=== PATIENT | male | born 1945 ===

== ENCOUNTER → 2018-01-07 | Outpatient (CLI) | payer OTHER | LOC: LAB SHORT 16:30 → LAB EV 16:30 | DX: E11.9 Type 2 diabetes mellitus without complications (principal) | CPT/HCPCS: 82043 ==

== ENCOUNTER → 2020-05-02 | Outpatient (CLI) | payer OTHER ==
[2020-05-02 17:14] LABS: Anion Gap 11 mmol/L (6-16); Blood Urea Nitrogen 20 mg/dL (8-24); Bun/Creatinine Ratio 13.8 (12.0-20.0); CHOL/HDL RATIO 3.5; CO2, Blood 22 mmol/L (21-32); Calcium, Blood 8.9 mg/dL (8.5-10.1); Chloride, Blood 103 mmol/L (98-108); Cholesterol 145 mg/dL (50-200); Creatinine, Blood 1.45 mg/dL (0.60-1.20); Glomerular Filtration Rate 47 (60-); Glucose, Blood 147 mg/dL (70-99); HDL Cholesterol 42 mg/dL (>39); LDL/HDL RATIO 1.4; Low Density Lipoprotein Chol 57 mg/dL (<110); Potassium, Blood 4.5 mmol/L (3.5-5.5); Sodium, Blood 136 mmol/L (136-145); Thyroid Stimulating Hormone 1.478 uIU/mL (0.360-4.800); Triglycerides 231 mg/dL (30-160); Very Low Density Lipoprot Chol 46 mg/dL (6-32)
== END | disposition home or self-care (01) ==
LOC: LAB EV 15:41 → LAB SHORT 15:41
PROVIDERS: Family Medicine
DX: E11.21 Type 2 diabetes mellitus with diabetic nephropathy (principal); E78.2 Mixed hyperlipidemia; E03.4 Atrophy of thyroid (acquired)
CPT/HCPCS: 36415; 80048; 80061; 83036; 84443